=== PATIENT | female | born 1960 ===

== ENCOUNTER 2025-03-21 05:47 | Inpatient (IN) | payer MEDICARE, SELFPAY ==
[2025-03-12 08:58] LABS: Hematocrit 37.4 % (37.0-47.0); Hemoglobin 12.6 g/dL (12.0-16.0); Mean Corp Hgb Conc. 33.7 g/dL (33.0-37.0); Mean Corpuscular Volume 93.0 fL (81.0-99.0); Platelet Count 189 10^3/uL (130-400); Red Cell Dist. Width 13.3 % (11.5-14.5)
[2025-03-12 09:13] LABS: INR 0.91; PT 12.6 Sec (11.4-14.6)
[2025-03-12 09:14] LABS: APTT 34.1 Sec (23.4-35.0)
[2025-03-12 10:59] LABS: ALT (SGPT) 31 U/L (0-35); AST (SGOT) 27 U/L (14-36); Albumin 4.8 g/dl (3.5-5.0); Alkaline Phosphatase 74 U/L (38-126); Blood Urea Nitrogen 14 mg/dl (7-17); Calcium 9.6 mg/dl (8.4-10.2); Carbon Dioxide 29 mmol/L (22-30); Chloride 105 mmol/L (98-107); Glucose 99 mg/dl (70-99); Potassium 4.7 mmol/L (3.5-5.1); Sodium 138 mmol/L (135-145); Total Protein 7.3 g/dl (6.3-8.2); eGFR > 60.00
[2025-03-12 13:15] LABS: Glycohemoglobin (HgbA1c) 5.8 % (4.0-5.6)
[2025-03-12 14:04] VITALS: BMI 23.5
[2025-03-21] VITALS (13 sets, daily range): BP systolic 128–158; BP diastolic 59–79; BMI 23.5
[2025-03-21] MEDS: NEURONTIN 600 MG PO (06:23)
[2025-03-21] MEDS: TYLENOL 1000 MG PO (06:23)
[2025-03-21] MEDS: RELISTOR 12 MG SC (06:24)
[2025-03-21] MEDS: NORMOSOL-R/PLASMALYTE-A 1000 IV ×3 (06:38→22:13)
--- NOTE | 2025-03-21 10:33 | W.IMMPOSTOP ---
Addendum entered and electronically signed by Hernandez Camara MD 03/21/25 15:36:
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
Also of note, I did update patient's , Hernandez, via phone conversation when patient was in recovery room.
Original Note:
Surgical Immed Post Op Note
-
Primary Surgeon: Fani Camara MD
Assisting Surgeon: Ester Mas MD
Pre-op Diagnosis: rectal prolapse
Post-op Diagnosis: same
Procedure Performed: 1) robotic ventral rectopexy 2) flexible sigmoidoscopy
Anesthesia Type: general plus local
Specimen / Cultures: none
Estimated Blood Loss: 30 cc
Complications: no immediate
Operative Findings: 1) lower midline abdominal wall adhesions 2) redundant sigmoid
Prado, stents and ureteral ICG by Dr. Merlos of urology. R stent removed at end of case.
Will send to med surg.
[2025-03-21 11:22] LABS: Hematocrit 33.9 % (37.0-47.0); Hemoglobin 11.3 g/dL (12.0-16.0); Mean Corp Hgb Conc. 33.3 g/dL (33.0-37.0); Mean Corpuscular Volume 93.6 fL (81.0-99.0); Nucleated Red Blood Cells % 0 %; Platelet Count 154 10^3/uL (130-400); Red Cell Dist. Width 13.2 % (11.5-14.5)
[2025-03-21 11:31] LABS: Blood Urea Nitrogen 18 mg/dl (7-17); Calcium 8.4 mg/dl (8.4-10.2); Carbon Dioxide 25 mmol/L (22-30); Chloride 106 mmol/L (98-107); Estimated Creatinine Clearance 83 ml/min; Glucose 143 mg/dl (70-99); Magnesium 2.3 mg/dl (1.6-2.3); Potassium 4.0 mmol/L (3.5-5.1); Sodium 137 mmol/L (135-145); eGFR > 60.00
[2025-03-21] MEDS: TYLENOL 650 MG PO ×4 (12:40→23:07)
--- NOTE | 2025-03-21 12:50 | PTCARENOTE ---
Pt arrived to [facility] s/p robotic ventral rectopexy. 5 lap sites and 1 poke site WILLIAM with glue. Prado catheter with dark blue/green output. 97% on 2L. Coarse and diminished b/l bases. Admission questions answered. Bed locked and in lowest position.
Care ongoing.
[2025-03-21] MEDS: TORADOL 10 MG IV ×2 (16:28→22:11)
[2025-03-21] MEDS: NEURONTIN 400 MG PO ×2 (16:28→22:10)
[2025-03-21] MEDS: CRESTOR 20 MG PO (17:21)
[2025-03-21] MEDS: DILAUDID 0.5 MG IV (18:13)
[2025-03-21] MEDS: SEROQUEL 300 MG PO (22:10)
[2025-03-21] MEDS: DESYREL 100 MG PO (22:11)
[2025-03-22 03:03] VITALS: BP 109/60
[2025-03-22] MEDS: TYLENOL PO ×2 (04:28→23:27)
[2025-03-22] MEDS: TORADOL 10 MG IV ×4 (04:28→22:14)
--- NOTE | 2025-03-22 06:16 | PTCARENOTE ---
Patient's stent got disconnected from the blue port , as patient got repositioned in bed, stent connected back to it, as urine is dripping from the end. Dr Merlos made aware via TT. No new orders at this time.
[2025-03-22 06:35] LABS: Hematocrit 29.1 % (37.0-47.0); Hemoglobin 9.7 g/dL (12.0-16.0); Mean Corp Hgb Conc. 33.3 g/dL (33.0-37.0); Mean Corpuscular Volume 91.2 fL (81.0-99.0); Nucleated Red Blood Cells % 0 %; Platelet Count 141 10^3/uL (130-400); Red Cell Dist. Width 13.2 % (11.5-14.5)
[2025-03-22 06:42] VITALS: BMI 23.6
[2025-03-22 07:32] VITALS: BP 128/70
[2025-03-22 07:33] LABS: Blood Urea Nitrogen 9 mg/dl (7-17); Calcium 8.5 mg/dl (8.4-10.2); Carbon Dioxide 28 mmol/L (22-30); Chloride 106 mmol/L (98-107); Estimated Creatinine Clearance 83 ml/min; Glucose 102 mg/dl (70-99); Magnesium 2.5 mg/dl (1.6-2.3); Potassium 4.2 mmol/L (3.5-5.1); Sodium 135 mmol/L (135-145); eGFR > 60.00
--- NOTE | 2025-03-22 09:09 | W.PN.CRS1 ---
Today's Communication / Plan
-
fulls
dc orosco
lovenox
removed stent
Assessment/Plan
-
POD#1 1) robotic ventral rectopexy 2) flexible sigmoidoscopy
vitals: WNL, WBC 6.9, Hgb 9.7
-Advance diet to fulls
-DC IVFs when tolerating po
-OOB
-Lovenox for DVT prophylaxis. TEDs/SCDs in place.
-Stent removed. D/C orosco.
-Await final pathology.
-Pain medication: tylenol/toradol standing, dilaudid PRN
Subjective Data
Procedure
03/21/2025- 1) robotic ventral rectopexy 2) flexible sigmoidoscopy
Subjective Data
Date of Service: March 22, 2025
Patient staets she is feeling well. She has no complaints. Denies nausea or vomiting.
Objective Data
-
Vital Signs
Temp Pulse Resp BP Pulse Ox
98.1 F 68 16 128/70 96
03/22/25 07:32 03/22/25 07:32 03/22/25 07:32 03/22/25 07:32 03/22/25 07:32
Intake & Output
03/21/25 03/22/25 03/23/25
06:59 06:59 06:59
Intake Total 3070 / 3070
Output Total 2425 / 2425
Balance 645 / 645
Intake:
Oral fluids 1640 / 1640
IV fluids (Total) 1430 / 1430
Normosol 150 / 150
Output:
Urine, Orosco 2425 / 2425
Lab Results
03/22/25 05:34
03/22/25 05:34
Physical Exam
-
General: No Acute Distress and AOx3
Abdomen: Soft, Non Distended and Non Tender
Skin: Warm and Dry
Incision: Clear, Dry, Intact
[2025-03-22] MEDS: RELISTOR 12 MG SC (09:15)
[2025-03-22] MEDS: EFFEXOR XR 37.5 MG PO (09:20)
[2025-03-22] MEDS: PROTONIX 40 MG PO (09:20)
[2025-03-22] MEDS: TYLENOL 650 MG PO ×4 (09:20→21:10)
[2025-03-22] MEDS: NEURONTIN 400 MG PO ×3 (09:21→21:11)
[2025-03-22] MEDS: NORMOSOL-R/PLASMALYTE-A 1000 IV (09:26)
[2025-03-22 11:28] VITALS: BP 144/68
[2025-03-22 15:35] VITALS: BP 145/70
[2025-03-22] MEDS: LOVENOX 40 MG SC (16:52)
[2025-03-22] MEDS: CRESTOR 20 MG PO (16:52)
[2025-03-22] MEDS: DESYREL 100 MG PO (21:10)
[2025-03-22] MEDS: SEROQUEL 300 MG PO (21:11)
[2025-03-22 23:06] VITALS: BP 132/72
[2025-03-23 03:05] VITALS: BMI 23.8
[2025-03-23] MEDS: TORADOL 10 MG IV ×2 (04:32→10:19)
[2025-03-23] MEDS: TYLENOL PO (04:37)
[2025-03-23 06:00] VITALS: BMI 23.8
[2025-03-23 07:05] VITALS: BP 132/71
[2025-03-23] MEDS: EFFEXOR XR 37.5 MG PO (08:47)
[2025-03-23] MEDS: RELISTOR 12 MG SC (08:47)
[2025-03-23] MEDS: TYLENOL 650 MG PO ×2 (08:47→12:10)
[2025-03-23] MEDS: NEURONTIN 400 MG PO (08:47)
[2025-03-23] MEDS: PROTONIX 40 MG PO (08:47)
--- NOTE | 2025-03-23 12:05 | W.PN.CRS1 ---
Today's Communication / Plan
-
regular diet
d/c
Assessment/Plan
-
POD#2 1) robotic ventral rectopexy 2) flexible sigmoidoscopy
vitals: WNL, no labs
-Advance diet to regular
-OOB
-Lovenox for DVT prophylaxis. TEDs/SCDs in place.
-Voiding post orosco removal
-Await final pathology.
-Pain medication: tylenol/toradol standing, dilaudid PRN
-OKay for discharge today. All discharge instructions discussed with patient including medications, activity levels and follow up. All questions answered.
Subjective Data
Procedure
03/21/2025- 1) robotic ventral rectopexy 2) flexible sigmoidoscopy
Subjective Data
Date of Service: March 23, 2025
Patient states she is feeling well. She has no complaints. Her pain is controlled. SHe is hungry. Denies nausea or vomiting.
Objective Data
-
Vital Signs
Temp Pulse Resp BP Pulse Ox
98.1 F 82 16 132/71 95
03/23/25 07:05 03/23/25 07:05 03/23/25 07:05 03/23/25 07:05 03/23/25 07:05
Intake & Output
03/22/25 03/23/25 03/24/25
06:59 06:59 06:59
Intake Total 3070 / 3070 1100 / 1100 480 / 480
Output Total 2425 / 2425 2300 / 2300
Balance 645 / 645 -1200 / -1200 480 / 480
Intake:
Oral fluids 1640 / 1640 1100 / 1100 480 / 480
IV fluids (Total) 1430 / 1430
Normosol 150 / 150
Output:
Urine, Orosco 2425 / 2425 1000 / 1000
Urine, Voided 1300 / 1300
Other:
Number of approximated MODERATE 2
amounts of urine
Lab Results
03/22/25 05:34
03/22/25 05:34
Physical Exam
-
General: No Acute Distress and AOx3
Abdomen: Soft, Non Distended and Non Tender
Skin: Warm and Dry
Incision: Clear, Dry, Intact
--- NOTE | 2025-03-23 12:09 | CM ---
Patient seen at bedside on 2 . Patient states that she is for discharge home today and she is anticipating family to transport her home. Patient lives in a 2 story home with no past needs for DME. Patient PCP is and she uses the
[facility] on [address] and [address]. Patient states that her will assist her with care and will transport her home. IMM completed and signed form placed on chart. CM will continue to follow for discharge planning needs.
Plan; home with no needs anticipated.
[2025-03-23 12:42] VITALS: BP 148/81
== END 2025-03-23 12:43 | disposition home or self-care (01) | DRG 330 ==
LOC: 2 SOUTH 05:47
PROVIDERS: ADMITTING PHYSICIAN Surgery; FAMILY PHYSICIAN Family Medicine
PROC: 0DSP4ZZ Reposition Rectum, Percutaneous Endoscopic Approach (ICD-10-PCS; 2025-03-21)
PROC: 8E0W4CZ Robotic Assisted Procedure of Trunk Region, Percutaneous Endoscopic Approach (ICD-10-PCS; 2025-03-21)
PROC: 0DJD8ZZ Inspection of Lower Intestinal Tract, Via Natural or Artificial Opening Endoscopic (ICD-10-PCS; 2025-03-21)
PROC: 0DUP4JZ Supplement Rectum with Synthetic Substitute, Percutaneous Endoscopic Approach (ICD-10-PCS; 2025-03-21)
DX: K62.3 Rectal prolapse (principal); F33.1 Major depressive disorder, recurrent, moderate; Q43.8 Other specified congenital malformations of intestine; F17.210 Nicotine dependence, cigarettes, uncomplicated; K66.0 Peritoneal adhesions (postprocedural) (postinfection); K21.00 Gastro-esophageal reflux disease with esophagitis, without bleeding; Z96.653 Presence of artificial knee joint, bilateral
CPT/HCPCS: 36415; 80048; 80053; 83036; 83735; 85025; 85027; 85610; 85730; 86850; 86900; 86901; 93005; 99406; C1763; J1335